=== PATIENT | male | born 1960 | race Caucasian/White ===

== ENCOUNTER 2019-10-09 13:47 | IRF | payer OTHER, SELFPAY ==
[2019-10-09 14:00] VITALS: BP 133/82; PULSE 85; RESP 18; TEMP 36.8; O2SAT 99; BMI 23.5
--- NOTE | 2019-10-09 14:20 | ADMGEN ---
This patient, Dk Hernandez, was admitted to [facility] Room 230-02. Patient/family oriented to hospital policies and general routines including ID bracelet, bed and alarms, visiting hours, pain management, procedures, bathroom and other care routines, personal items, smoking policy, room service/diet, and visiting hours. Valuables list has been completed. Information on how to activate the Rapid Response Team has been discussed. Patient/Family are encouraged to report perceived risks to care and to ask questions if they do not understand what they are told or what they should do.
[2019-10-09 16:53] LABS: Glucose Point of Care 71 (65-105)
[2019-10-09] MEDS: ALBUTEROL SULFATE (*SP) AEROSOL 1 PUFF 2 PUFF INHALATION (19:49)
[2019-10-09 19:54] VITALS: PULSE 81; RESP 16
[2019-10-09] MEDS: DORZOLAMIDE HCL 2% OPHTH DROPS 1 DROP EACH EYE (21:05)
[2019-10-09] MEDS: ACETAMINOPHEN 500 MG TABLET PO (21:06)
[2019-10-09] MEDS: metFORMIN HCL 500 MG TABLET PO (21:06)
[2019-10-09] MEDS: AMITRIPTYLINE HCL 10 MG TABLET PO (21:06)
[2019-10-09 21:07] VITALS: PULSE 80
[2019-10-09] MEDS: carvediloL 25 MG TABLET PO (21:07)
[2019-10-09] MEDS: HEPARIN SODIUM 5,000 UNITS/ML VIAL 5000 UNITS SUB-Q (21:07)
[2019-10-09] MEDS: LATANOPROST 0.005% OP SOLN 2.5 ML BTL 1 DROP RIGHT EYE (21:07)
[2019-10-09] MEDS: SIMVASTATIN 20 MG TABLET 40 MG PO (21:07)
[2019-10-09] MEDS: NEOMYCIN/POLYMYXIN/BACITRACIN OPHTH OINTMENT 3.5 GM TUBE 1 APPLIC RIGHT EYE (21:08)
[2019-10-09 22:00] VITALS: BP 113/65; PULSE 76; RESP 18; TEMP 36.9; O2SAT 99
[2019-10-10] VITALS (8 sets, daily range): BP systolic 109–122; BP diastolic 66–91; PULSE 71–83; RESP 16–20; TEMP 36.5–37.1; O2SAT 98–100
[2019-10-10] MEDS: ALBUTEROL SULFATE (*SP) AEROSOL 1 PUFF 2 PUFF INHALATION ×2 (02:06→09:17)
[2019-10-10] MEDS: ACETAMINOPHEN 500 MG TABLET PO ×2 (03:21→12:04)
[2019-10-10 04:54] LABS: Basophils Percent Auto 0.4 % (0.2-1.2); Eosinophils Absolute Auto 0.1 K/mm3 (0-0.3); Eosinophils Percent Auto 2.1 % (0-4.4); Hematocrit 44.3 % (42.0-52.0); Hemoglobin 14.6 g/dL (14.0-18.0); Immature Granulocyte Absolute 0.01 K/mm3 (0.00-0.031); Immature Granulocyte Percent A 0.2 % (0-0.5); Lymphocytes Absolute Auto 2.12 K/mm3 (0.9-3.2); Lymphocytes Percent Auto 40.8 % (18.3-44.2); Mean Corpuscular Hemoglobin 28.3 pg (26-34); Mean Corpuscular Volume 85.9 fl (80-100); Mean Platelet Volume 12.5 fl (7.4-10.4); Monocytes Absolute Auto 0.6 K/mm3 (0.1-0.6); Monocytes Percent Auto 11.6 % (2.6-8.5); Neutrophils Absolute Auto 2.3 K/mm3 (1.3-6.7); Neutrophils Percent Auto 44.9 % (45.5-73.1); Platelet Count Result 119 k/mm3 (150-375); Red Blood Count 5.16 M/mm3 (4.6-6.20); Red Cell Distribution Width 13.7 % (11.5-14.5); White Blood Count 5.2 K/mm3 (4.5-10.0)
[2019-10-10 05:09] LABS: Blood Urea Nitrogen 14 mg/dL (9-20); Carbon Dioxide 26 mmol/L (22-30); Chloride 103 mmol/L (98-107); Cholesterol 157 mg/dL (0-200); Estimated CRCL calculation 84 ml/min; Estimated Glomerular Filt Rate > 60; Glucose 122 mg/dL (75-110); HDL Direct 39 mg/dL; Potassium 3.8 mmol/L (3.4-5.0); Sodium 135 mmol/L (137-145); Triglycerides 62 mg/dL (<150)
[2019-10-10 05:19] LABS: LDL Cholesterol Direct 98 mg/dL
[2019-10-10] MEDS: HEPARIN SODIUM 5,000 UNITS/ML VIAL 5000 UNITS SUB-Q ×3 (05:37→21:46)
[2019-10-10 05:47] LABS: Glucose Point of Care 120 (65-105)
[2019-10-10] MEDS: metFORMIN HCL 500 MG TABLET PO ×2 (09:52→21:47)
[2019-10-10] MEDS: FUROSEMIDE 40 MG TABLET PO (09:52)
[2019-10-10] MEDS: ISOSORBIDE MONONITRATE 30 MG TAB.ER.24H PO (09:52)
[2019-10-10] MEDS: lisinopriL 5 MG TABLET PO (09:52)
[2019-10-10] MEDS: NEOMYCIN/POLYMYXIN/BACITRACIN OPHTH OINTMENT 3.5 GM TUBE 1 APPLIC RIGHT EYE ×2 (09:53→21:46)
[2019-10-10] MEDS: carvediloL 25 MG TABLET PO ×2 (09:53→21:47)
[2019-10-10] MEDS: INSULIN GLARGINE (*BKC) 100 UNITS/ML 7 UNITS SUB-Q (09:55)
[2019-10-10 11:57] LABS: Glucose Point of Care 220 (65-105)
[2019-10-10] MEDS: INSULIN ASPART (*BKC) 100 UNITS/ML SUB-Q (12:03)
--- NOTE | 2019-10-10 12:30 | WPDREHABHP ---
H&P: HPI History of Present Illness Chief complaint: Stroke Narrative: Dk Hernandez is a 59 year old maleHISTORY OF PRESENT ILLNESS: The patient's primary rehab impairment category is Stroke The etiologic diagnosis is right thalamic hemorrhage and right montero radiata ischemic stroke I saw this patient [id number] on October 10, 2019 at 12:30 p.m. The patient is a 59-year-old right-handed Afro-[place] male who presented to [facility] as a transfer from [facility] for intracerebral hemorrhage on October 06, 2019. He had complains of left-sided weakness and numbness. He does have a prior medical history of uncontrolled hypertension, diabetes mellitus type 2 and coronary artery disease status post multiple coronary artery bypass graft and has been on aspirin and Plavix at home. According to the patient his mother last week and he was very stressed about it. He reported he woke up the morning of October 04 and fell many attempted to walk. His blood pressure at the outside hospital was more than 200 systolic and more than 100 diastolic. He was receiving the IV pushes of hydralazine and labetalol and was eventually started on nicardipine drip. Head CT showed a right thalamic hemorrhage. MRI showed both right thalamic hemorrhage and right montero radiata ischemic stroke. Etiology is likely due to uncontrolled hypertension. The patient reported noncompliance at times with home hypertensive medications. EKG demonstrated sinus rhythm with premature atrial complexes. The patient passed a swallowing study on September 25, 2014 and is on a cardiac diabetic diet. The patient is very motivated for the rehab and presents alert well oriented with mild dysarthria and mild oral dysphagia. Although the patient had an ischemic stroke and should be started on antiplatelet he also has a hemorrhagic stroke which is contraindication. The antiplatelet agent is held until his blood pressure management is optimized he should be reassessed in 3 to 4 weeks with repeat scan The patient has not traveled outside the [place] are had contact with someone who is ill that has traveled outside use in the past 21 days. The patient has not traveled to an area of the [place] that is experiencing known transmission of the Coronavirus and has not had close personal contact with anyone that has. The patient does not have a fever. The patient does not have any respiratory symptoms either upper respiratory or lower respiratory Therapy was initiated at the acute care facility and the patient transferred to us from [facility] on October 09, 2019 on FALLS OR SURGERIES: The patient has had no major surgeries in the 100 days prior to admission. They had no falls in the past year. They had no falls with injury in the past year. PAST MEDICAL HISTORY: patient is hypertensive with the coronary artery disease and status post multiple coronary bypass grafting diabetes mellitus with peripheral neuropathy and hypertension PAST SURGICAL HISTORY: coronary artery bypass graft for which she was on Plavix which has been held because of the intracranial hemorrhage SOCIAL HISTORY: the patient normally lives alone however since the pandemic started in August the patient's ex- Diana has been staying with him. He reported that she plans to remain in his home with his kids even after rehab to assist. The patient lives in a 2 story home with 5 steps to enter. The patient is able to receive all care on [facility] floor. Prior to hospitalization the patient was totally independent with all ADLs IADLs less and use cane for mobility because of neuropathy the planus or home with the ex- as support. FAMILY HISTORY: Positive for high blood pressure and diabetes and most likely for coronary artery disease PRIOR LEVEL OF FUNCTION: Eating was INDEPENDENT Oral Care was INDEPENDENT Toileting Hygiene was INDEPENDENT Shower/Bathing was INDEPEND
[2019-10-10 16:33] LABS: Glucose Point of Care 115 (65-105)
[2019-10-10] MEDS: CYCLOBENZAPRINE HCL 10 MG TABLET PO ×2 (16:49→21:48)
[2019-10-10] MEDS: TRAMADOL HCL 50 MG TABLET PO ×2 (16:49→21:48)
[2019-10-10] MEDS: GABAPENTIN 300 MG CAPSULE PO (16:50)
[2019-10-10] MEDS: LATANOPROST 0.005% OP SOLN 2.5 ML BTL 1 DROP RIGHT EYE (21:46)
[2019-10-10] MEDS: AMITRIPTYLINE HCL 10 MG TABLET PO (21:47)
[2019-10-10] MEDS: SIMVASTATIN 20 MG TABLET 40 MG PO (21:47)
[2019-10-10] MEDS: hydrOXYzine HCL 25 MG TABLET 50 MG PO (21:47)
[2019-10-10] MEDS: DORZOLAMIDE HCL 2% OPHTH DROPS 1 DROP EACH EYE (21:50)
[2019-10-11] VITALS (7 sets, daily range): BP systolic 100–125; BP diastolic 68–78; PULSE 68–80; RESP 16–19; TEMP 36.3–37; O2SAT 98–99
[2019-10-11 05:41] LABS: Glucose Point of Care 137 (65-105)
[2019-10-11] MEDS: HEPARIN SODIUM 5,000 UNITS/ML VIAL 5000 UNITS SUB-Q ×3 (05:42→21:32)
[2019-10-11] MEDS: lisinopriL 5 MG TABLET PO (08:13)
[2019-10-11] MEDS: ISOSORBIDE MONONITRATE 30 MG TAB.ER.24H PO (08:13)
[2019-10-11] MEDS: carvediloL 25 MG TABLET PO ×2 (08:13→21:33)
[2019-10-11] MEDS: GABAPENTIN 300 MG CAPSULE PO ×3 (08:14→17:08)
[2019-10-11] MEDS: NEOMYCIN/POLYMYXIN/BACITRACIN OPHTH OINTMENT 3.5 GM TUBE 1 APPLIC RIGHT EYE ×2 (08:14→21:32)
[2019-10-11] MEDS: FUROSEMIDE 40 MG TABLET PO (08:14)
[2019-10-11] MEDS: metFORMIN HCL 500 MG TABLET PO ×2 (08:14→21:33)
[2019-10-11] MEDS: TRAMADOL HCL 50 MG TABLET PO ×2 (08:17→17:07)
[2019-10-11] MEDS: CYCLOBENZAPRINE HCL 10 MG TABLET PO ×2 (08:17→17:08)
[2019-10-11] MEDS: INSULIN GLARGINE (*BKC) 100 UNITS/ML 7 UNITS SUB-Q (08:18)
[2019-10-11 11:45] LABS: Glucose Point of Care 182 (65-105)
--- NOTE | 2019-10-11 16:17 | WPDNEURORHBP ---
Subjective Date/time seen: 10/11/19 16:17 Interval history: this 59-year-old Afro-[place] gentleman is here after having had intracranial hemorrhage and also ischemic stroke of right cerebral hemisphere which has left him with left-sided hemiparesis from which he is improving where the leg is improving better than the arm he denies any headache nausea vomiting chest pain shortness of breath. 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 Review of Systems Review of Systems: All systems reviewed & are unremarkable except as noted in HPI and below Functional Status Ambulation Ability Ability to Ambulate 10 Feet: Minimum Assistance X 1 Ability to Ambulate 50 Feet With 2 Turns: Minimum Assistance X 1 Ability to Ambulate 150 Feet: Moderate Assistance X 1 Ambulation Assistive Devices: Walker, Adam Transfers Ability Ability to Transfer In/Out of Chair: Contact Guard Exam Const: General: comfortable and no acute distress HENMT: General nose exam: Normal nares present Mouth: Yes moist mucous membranes Eyes: General: appearance normal, both eyes and all related structures Other: 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 Neck: Neck: supple and no JVD Resp: Effort & Inspection: normal respiratory effort Auscultation: clear to auscultation bilaterally Cardio: Rate: regular rate Rhythm: regular rhythm GI: GI Palp: Yes Soft to palpation Auscultation: normal bowel sounds Skin: General skin exam: normal color and no rashes or lesions noted Neuro: Other: patient is awake and alert with normal speech and language function and improving left-sided hemiparesis happy with the care is still needing lot of assistance in the activities of daily living Extrem: General: normal to inspection Psych: Mental Status: mental status grossly normal Objective Data Vital Signs Vital Signs: Vital Signs - 24 hr 10/10/19 21:47 10/10/19 22:00 10/11/19 06:00 Temperature 36.6 C 36.6 C Pulse Rate 78 83 70 Respiratory Rate 18 19 Blood Pressure 117/72 101/68 Pulse Oximetry 98 99 10/11/19 08:13 10/11/19 08:23 10/11/19 10:37 Temperature Pulse Rate 68 75 72 Respiratory Rate 16 16 Blood Pressure Pulse Oximetry 10/11/19 14:00 Temperature 36.3 C L Pulse Rate 78 Respiratory Rate 17 Blood Pressure 125/78 Pulse Oximetry 98 Intake/Output Intake/Output: Intake & Output 10/08/19 10/09/19 10/10/19 10/11/19 23:59 23:59 23:59 23:59 Intake Total 240 1200 960 Balance 240 1200 960 Meds/Results Medications: Active Medications Generic Name Dose Route Start Last Admin Trade Name Freq PRN Reason Stop Dose Admin Acetaminophen 500 mg 10/09/19 14:49 10/10/19 12:04 Tylenol Tablet PO 500 mg Q4H PRN Administration Pain 1-3 Albuterol 2 puff 10/10/19 14:51 Proventil Hfa INHALATION 11/04/19 14:49 Q6HRT PRN Shortness Of Breath Amitriptyline HCl 10 mg 10/09/19 21:00 10/10/19 21:47 Elavil PO 10 mg HS LINDA Administration Budesonide/Formoterol Fumarate 2 puff 10/09/19 20:00 10/11/19 08:21 Symbicort 80-4.5 Mcg (*Sp) Inhaler INHALATION 2 puff Q12HRT LINDA Administration Carvedilol 25 mg 10/09/19 21:00 10/11/19 08:13 Coreg PO 25 mg Q12HR LINDA Administration Cyclobenzaprine HCl 10 mg 10/10/19 15:38 10/11/19 08:17 Flexeril PO 10 mg Q8H PRN Administration Muscle Spasm Dextrose 12.5 gm 10/09/19 14:51 Dextrose 50% Syringe IV PUSH PRN PRN Hypoglycemia Protocol Dorzolamide HCl 1 drop 10/09/19 14:49 10/10/19 21:50 Trusopt EACH EYE 1 drop BID PRN Administration Glaucoma Furosemide 40 mg 10/10/19 09:00 10/11/19 08:14 Lasix Tablet PO 40 mg DAILY LINDA Administration Gabapentin 300 mg 10/10/19 17:00 10/11/19 13:01 Neurontin PO 300 mg TID LINDA Administration Glucagon 1 mg 10/09/19 14:51 Glucagon For Inj IM PRN PRN Hypoglycemia Protocol Glucos
[2019-10-11 16:54] LABS: Glucose Point of Care 104 (65-105)
[2019-10-11] MEDS: DORZOLAMIDE HCL 2% OPHTH DROPS 1 DROP EACH EYE (21:31)
[2019-10-11] MEDS: hydrOXYzine HCL 25 MG TABLET 50 MG PO (21:32)
[2019-10-11] MEDS: LATANOPROST 0.005% OP SOLN 2.5 ML BTL 1 DROP RIGHT EYE (21:32)
[2019-10-11] MEDS: AMITRIPTYLINE HCL 10 MG TABLET PO (21:33)
[2019-10-11] MEDS: SIMVASTATIN 20 MG TABLET 40 MG PO (21:33)
[2019-10-12 06:00] VITALS: BP 106/69; PULSE 78; RESP 18; TEMP 37.6; O2SAT 100
[2019-10-12] MEDS: HEPARIN SODIUM 5,000 UNITS/ML VIAL 5000 UNITS SUB-Q ×3 (06:28→20:14)
[2019-10-12 06:35] LABS: Glucose Point of Care 156 (65-105)
[2019-10-12 08:00] VITALS: PULSE 78; RESP 18; O2SAT 100
[2019-10-12] MEDS: FUROSEMIDE 40 MG TABLET PO (08:44)
[2019-10-12] MEDS: NEOMYCIN/POLYMYXIN/BACITRACIN OPHTH OINTMENT 3.5 GM TUBE 1 APPLIC RIGHT EYE ×2 (08:44→20:14)
[2019-10-12] MEDS: metFORMIN HCL 500 MG TABLET PO ×2 (08:44→20:14)
[2019-10-12] MEDS: lisinopriL 5 MG TABLET PO (08:45)
[2019-10-12] MEDS: ISOSORBIDE MONONITRATE 30 MG TAB.ER.24H PO (08:45)
[2019-10-12] MEDS: GABAPENTIN 300 MG CAPSULE PO ×3 (08:45→17:27)
[2019-10-12 08:46] VITALS: PULSE 78
[2019-10-12] MEDS: carvediloL 25 MG TABLET PO ×2 (08:46→20:13)
[2019-10-12] MEDS: INSULIN GLARGINE (*BKC) 100 UNITS/ML 7 UNITS SUB-Q (08:47)
--- NOTE | 2019-10-12 09:48 | RPD ---
INDIVIDUALIZED PLAN OF CARE FOR Dk Hernandez Brief Synthesis of Pre-Admission Screen, Post-Admission Evaluation and Therapy Evaluations: The patient presents to rehab with right thalamic hemorrhage and right montero radiata ischemic stroke. Comorbidities include left-sided weakness, uncontrolled hypertension, DMII, CAD s/p multiple CABGs, long-term anticoagulant use, mild dysarthria, right eye extropia, hyperlipidemia, minimal oral dysphagia. The patient needs physician monitoring and treatment of hypertension, hyperglycemia, oral dysphagia, brain hemorrhage, monitoring for adverse reactions to new medications, monitoring of infection, and pain control. The patient requires nursing services for frequent neuro checks, anticoagulation therapy, medication management and education, pressure relief and skin care management, monitoring of labs, bowel and bladder training, diabetes management and education, and fall/safety precautions. Deficits include:ADLs, Balance, Endurance, Family Training/Education, Mobility, Pain Management, ROM, Safety, Strength, Transfers Development Administrator/Case Management for: Discharge Planning and Patient/Family Counseling Physical Therapy: 5 days per week for 90 minutes. Treatments may include: Therapeutic Exercise, Gait Training, Neuromuscular Re-education, Transfer Training, Community Reintegration, Bed Mobility, Patient/Family Education, Wheelchair Mobility Group Therapy/Concurrent Therapy Rationales: -Improve attention span during functional activities in a distracted environment. -Enhance problem solving and/or adequate judgment skills during functional activities in a distracted environment. -Promote increased safety awareness in a distracted environment to reduce fall risk with functional tasks, transfers, and ambulation to allow a more safe, self-sufficient return to the home environment. -Improve dynamic balance skills to promote safety and independence with functional activities in a distracted environment for maximum gain. Occupational Therapy: 5 days per week for 90 minutes. Treatments may include: Therapeutic Exercise, Therapeutic Activity, Cognitive Training, Self-Care Transfer Training, Community Reintegration, Home Management, Patient/Family Education, Wheelchair Mobility Training, Energy Conservation Training Group Therapy/Concurrent Therapy Rationales: -Allow therapist to observe and teach generalization and carry-over of skills learned in individual therapy. -Enhance problem solving and sequencing skills during therapeutic activities in a distracted environment. -Promote increased safety awareness in a realistic setting to reduce fall risk with functional tasks due to visual and verbal distractions. -Increase functional level with ADLs, ADL transfers and use of adaptive equipment through therapeutic activities with others while promoting safety to allow a more safe, self-sufficient return home. Medical Prognosis: Good Anticipated Length of Stay: 10 days Rehab Goals: Eating Goal: 06-Independent Oral Hygiene Goal: 06-Independent Toileting Hygiene Goal: 06-Independent Shower/Bathe Self Goal: 06-Independent Upper Body Dressing Goal: 06-Independent Lower Body Dressing Goal: 06-Independent Putting On/Taking Off Footwear Goal: 06-Independent Rolling Left and Right Goal: 06-Independent Sit to Lying Goal: 06-Independent Lying to Sitting on Side of Bed Goal: 06-Independent Sit to Stand Goal: 06-Independent Chair/[id number] Transfer Goal: 06-Independent Toilet Transfer Goal: 06-Independent Car Transfer Goal: 06-Independent Walk 10' Goal: 06-Independent Walk 50' with Two Turns Goal: 06-Independent Walk 150' Goal: 06-Independent Walk 10' on Uneven Surface Goal: 04-Supervision or Touching Assistance 1 Step (Curb) Goal: 04-Supervision or Touching Assistance 4 Steps Goal: 04-Supervision or Touching Assistance 12 Steps Goal Score: 04-Supervision or Touching Assistance Picking Up Object Goal: 04-Supervision or Touching
[2019-10-12 12:06] VITALS: BMI 23.5
[2019-10-12 12:12] LABS: Glucose Point of Care 125 (65-105)
[2019-10-12 14:00] VITALS: BP 126/72; PULSE 82; RESP 18; TEMP 36.5; O2SAT 99
[2019-10-12 16:48] LABS: Glucose Point of Care 125 (65-105)
[2019-10-12 20:13] VITALS: PULSE 82
[2019-10-12] MEDS: LATANOPROST 0.005% OP SOLN 2.5 ML BTL 1 DROP RIGHT EYE (20:13)
[2019-10-12] MEDS: hydrOXYzine HCL 25 MG TABLET 50 MG PO (20:13)
[2019-10-12] MEDS: AMITRIPTYLINE HCL 10 MG TABLET PO (20:13)
[2019-10-12] MEDS: SIMVASTATIN 20 MG TABLET 40 MG PO (20:14)
[2019-10-12 22:00] VITALS: BP 137/81; PULSE 84; RESP 17; TEMP 36.4; O2SAT 94
[2019-10-13 06:00] VITALS: BP 120/72; PULSE 77; RESP 19; TEMP 36.6; O2SAT 92
[2019-10-13] MEDS: HEPARIN SODIUM 5,000 UNITS/ML VIAL 5000 UNITS SUB-Q (06:00)
[2019-10-13 06:21] LABS: Glucose Point of Care 101 (65-105)
[2019-10-13 08:38] VITALS: PULSE 77
[2019-10-13] MEDS: carvediloL 25 MG TABLET PO (08:38)
[2019-10-13] MEDS: lisinopriL 5 MG TABLET PO (08:39)
[2019-10-13] MEDS: GABAPENTIN 300 MG CAPSULE PO (08:39)
[2019-10-13] MEDS: ISOSORBIDE MONONITRATE 30 MG TAB.ER.24H PO (08:39)
[2019-10-13] MEDS: NEOMYCIN/POLYMYXIN/BACITRACIN OPHTH OINTMENT 3.5 GM TUBE 1 APPLIC RIGHT EYE (08:39)
[2019-10-13] MEDS: metFORMIN HCL 500 MG TABLET PO (08:39)
[2019-10-13] MEDS: FUROSEMIDE 40 MG TABLET PO (08:39)
[2019-10-13] MEDS: INSULIN GLARGINE (*BKC) 100 UNITS/ML 7 UNITS SUB-Q (08:41)
[2019-10-13] MEDS: DORZOLAMIDE HCL 2% OPHTH DROPS 1 DROP EACH EYE (10:05)
--- NOTE | 2019-10-13 10:44 | PC.NURSE ---
Patient very adamant during rehab team conference that he needed to discharge today. Patient is alert and oriented and able to make his needs known. Nurse Dock Or Pier Laborer for [facility] as well as Nurse for patient went in to discuss the risks of leaving against medical advice. Patient was informed that the doctor would be unable to give scripts for medications, equipment, and home health. Patient was informed that his condition could worsen, that he could have another stroke or he could even . Patient stated he understood and he appreciated everything but he has to take his chances. 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 Patient was educated to call his primary medical physician when he leaves and let him know what happened and to talk with him about getting equipment he needs, medications, etc. Patient was also educated that if he started experiencing headache, dizziness, chest pain, SOB, etc to go to an emergency room to be evaluated. Patient was also educated that if he stayed through for therapy he would receive his 5 full days of therapy and would be able to discharge saturday. Patient also updated that his stay may not be covered by his insurance if he leaves [facility]. Patient stated he understood this as well.
--- NOTE | 2019-10-13 13:13 | WPDNEURORHBP ---
Subjective Date/time seen: 10/13/19 13:13 Interval history: this 59-year-old the patient is here after having had a right thalamic hemorrhage and right coronary radiata ischemic stroke with significant left-sided hemiparesis but today somehow he has some family issues and wants to go home vehemently and in fact he wanted to leave against medical advice to the tele conference his was also of the same opinion and spite of our all afford including myself our team and also our nurse sr. manager the patient did signed out against medical advise Review of Systems Review of Systems: All systems reviewed & are unremarkable except as noted in HPI and below Functional Status Ambulation Ability Ability to Ambulate 10 Feet: Minimum Assistance X 1 Ability to Ambulate 50 Feet With 2 Turns: Minimum Assistance X 1 Ability to Ambulate 150 Feet: Minimum Assistance X 1 Ambulation Assistive Devices: Cane, Adam Transfers Ability Ability to Transfer In/Out of Chair: Contact Guard Exam Const: General: comfortable and no acute distress HENMT: General nose exam: Normal nares present Mouth: Yes moist mucous membranes Eyes: General: appearance normal, both eyes and all related structures Neck: Neck: supple and no JVD Resp: Effort & Inspection: normal respiratory effort Auscultation: clear to auscultation bilaterally Cardio: Rate: regular rate Rhythm: regular rhythm GI: GI Palp: Yes Soft to palpation Auscultation: normal bowel sounds Skin: General skin exam: normal color and no rashes or lesions noted Neuro: Other: patient is awake and alert and well oriented time place and person he became quite upset when he was counseled about staying in the rehab does know the his deficit he said he will be fine at home and will get better and got will heal him in any event he does have a moderately severe left-sided hemiparesis for which she was improving and doing remarkably well in the therapy but is still needing assistance all the activities of daily living Extrem: General: normal to inspection Psych: Mental Status: mental status grossly normal Objective Data Vital Signs Vital Signs: Vital Signs - 24 hr 10/12/19 14:00 10/12/19 20:13 10/12/19 22:00 Temperature 36.5 C 36.4 C Pulse Rate 82 82 84 Respiratory Rate 18 17 Blood Pressure 126/72 137/81 Pulse Oximetry 99 94 10/13/19 06:00 10/13/19 08:38 Temperature 36.6 C Pulse Rate 77 77 Respiratory Rate 19 Blood Pressure 120/72 Pulse Oximetry 92 Intake/Output Intake/Output: Intake & Output 10/10/19 10/11/19 10/12/19 10/13/19 23:59 23:59 23:59 23:59 Intake Total 1200 1080 480 360 Balance 1200 1080 480 360 Labs Labs: Laboratory Results - last 24 hr 10/12/19 10/13/19 16:46 06:04 POC Capillary Glucose 125 H 101 Progress Note: A&P Assessment and Plan (1) Medical non-compliance: Code(s): Z91.19 - Patient's noncompliance with other medical treatment and regimen Status: Acute (2) S/P CABG (coronary artery bypass graft): Code(s): Z95.1 - Presence of aortocoronary bypass graft Status: Acute (3) Uncontrolled type 2 diabetes mellitus with peripheral neuropathy: Code(s): E11.42 - Type 2 diabetes mellitus with diabetic polyneuropathy; E11.65 - Type 2 diabetes mellitus with hyperglycemia Status: Acute (4) Hypertension: Code(s): I10 - Essential (primary) hypertension Status: Acute (5) Intracranial hemorrhage: Code(s): I62.9 - Nontraumatic intracranial hemorrhage, unspecified Status: Acute (6) Ischemic stroke: Code(s): I63.9 - Cerebral infarction, unspecified Status: Acute Additional Plan discussed in detail in the team conference talking to his and also patient himself he just does not seem to care and wants to go home and would not elaborate what the family emergency situation is
--- NOTE | 2019-10-17 18:54 | DS_ITS ---
DATE OF DISCHARGE: 10/13/2019 DISCHARGE ACUTE REHABILITATION DIAGNOSIS: Primary rehab impairment category of stroke with etiological diagnosis of right thalamic bleed with right montero radiata, ischemic stroke. DISCHARGE ACTIVE COMORBID CONDITIONS: 1. Hypertension. 2. Coronary artery disease for which the patient has undergone multiple coronary artery bypass grafting. 3. Diabetes mellitus with diabetic neuropathy. REASON FOR ADMISSION: A 59-year-old right-handed male presented to [facility] on transfer from [facility] for the intra-cerebral hemorrhage on 10/06/2019, resulting left-sided weakness and numbness with no prior medical history of uncontrolled hypertension, diabetes mellitus with past medical history of uncontrolled hypertension, diabetes mellitus, and coronary artery disease for which the patient has undergone bypass grafting multiple times and had been taking aspirin and Plavix. According to the information, the patient's mother last week and he was very stressed about. He reportedly woke up in the morning of 10/04 and fell many times when he attempted to walk. His blood pressure outside hospital was 200 systolic, diastolic 100. He received the IV pushes of hydralazine, labetalol, and was eventually started on nicardipine drip. Head CT scan showed right thalamic bleed and MRI documents the right thalamic bleed and right montero radiata ischemic stroke as well. He was noncompliant with the home antihypertensive medication. EKG was with premature atrial complexes. The patient passed the swallowing test on 09/25. He was very motivated for the rehab and was presently alert, oriented with mild dysarthria and oral dysphagia. The patient had not traveled outside the [place] and had some contact with someone who was ill, has travelled outside the [place] in the last 21 days. The patient himself has not traveled outside the [place] has no personal contact with anyone who has COVID and himself has no respiratory symptoms and cough and fever. LEVEL OF FUNCTION AT THE TIME OF ADMISSION: The patient was independent in eating, required setup for oral hygiene, supervision for toileting, partial assistance for bathing, upper body dressing, lower body dressing and footwear, supervision for rolling in bed. He was independent for sit to lying, required partial assistance for lying to sit, sit to stand, chair transfer, supervision for toilet transfer and car transfer, partial assistance for walking 10 feet, 50 feet with 2 turns, walking 150 feet, walking 10 feet on uneven surfaces, curb or step, 4 steps, 12 steps, picking up object and required supervision for the wheelchair for 50 and 150 feet. ANTICIPATED REHABILITATION GOALS: Anticipated rehab goals at the time of admission were to make him independent in all the modalities and require only supervision for the walking 10 feet on uneven surfaces, curb or step, 4 steps, 12 steps, picking up object, but make him independent for the wheelchair 50 feet, 150 feet. HOSPITAL COURSE: During the hospitalization, he was followed by Dr. Goetz. He was actively involved in the rehab, physical therapy and occupation therapy, but unfortunately he wanted to go home because of family issues and was ready to leave against the medical advice. Tele conference was attempted with his , but he finally signed out. Before the discharge or the signing out, he was able to ambulate 10 feet with minimum assistance of one, 50 feet with 2 turns, minimum assistance of one, 150 feet with minimum assistance of one using the Adam cane and he was able to transfer in and out of chair with contact guard. General physical examination was normal. Neurological examination was definitely improving. He was afebrile, normotensive, and discharge instruction involved no
== END 2019-10-13 11:45 | disposition left against medical advice (07) | DRG 57 ==
PROVIDERS: Admitting Provider Psychiatry & Neurology Neurology; PCP Internal Medicine; Visit Provider Psychiatry & Neurology Neurology
DX: I69.354 Hemiplegia and hemiparesis following cerebral infarction affecting left non-dominant side (principal); I69.154 Hemiplegia and hemiparesis following nontraumatic intracerebral hemorrhage affecting left non-dominant side; I69.391 Dysphagia following cerebral infarction; I69.322 Dysarthria following cerebral infarction; I69.191 Dysphagia following nontraumatic intracerebral hemorrhage; I69.122 Dysarthria following nontraumatic intracerebral hemorrhage; R13.11 Dysphagia, oral phase; E11.42 Type 2 diabetes mellitus with diabetic polyneuropathy; E11.319 Type 2 diabetes mellitus with unspecified diabetic retinopathy without macular edema; E11.65 Type 2 diabetes mellitus with hyperglycemia; F17.210 Nicotine dependence, cigarettes, uncomplicated; F12.90 Cannabis use, unspecified, uncomplicated; H54.7 Unspecified visual loss; I25.10 Atherosclerotic heart disease of native coronary artery without angina pectoris; I10 Essential (primary) hypertension; Z95.1 Presence of aortocoronary bypass graft; Z91.14 Patient's other noncompliance with medication regimen
CPT/HCPCS: 36415; 80048; 80061; 83036; 85025; 92523; 94640; 97110; 97112; 97116; 97162; 97166; 97530; 97535; A9270; J1644; J1815